=== PATIENT | male | born 1970 ===

== ENCOUNTER → 2017-05-10 | Outpatient (CLI) | payer OTHER ==
--- NOTE | 2017-05-10 08:55 | DIAGNOSTIC IMAGING REPORT ---
AP STANDING VIEW OF BOTH KNEES; 3 VIEWS LEFT KNEE CLINICAL HISTORY: Chronic left knee pain. FINDINGS: An AP standing view of both knees with crosstable lateral, tunnel, and sunrise views of the left knee are obtained. No prior studies are available for comparison at the time of dictation. The skeletal structures are osteopenic. There is advanced tricompartmental degenerative joint space narrowing in the left knee, greatest in the medial compartment where there is bony sclerosis and osteochondral irregularity. There are large marginal osteophytes and patellar enthesophytes. Chondrocalcinosis is noted in the medial and lateral compartments. Bony overgrowth is seen along the posterior aspect of the distal femoral condyles on the lateral view. There is a large joint effusion. Calcifications are noted within the distal aspect of the quadriceps tendon. Soft tissue swelling is present around the left knee. Survey images of the right knee on the frontal view show moderate to advanced narrowing in the medial compartment, marginal osteophytes, and chondrocalcinosis in the medial and lateral compartments. Soft tissue swelling is observed. IMPRESSION: 1. Large joint effusion and soft tissue swelling. No acute bony abnormality seen in the left knee. 2. Advanced osteoarthrosis and chondrocalcinosis of the left knee as above. 3. Survey images of the right knee on the frontal view also show moderate to advanced osteoarthrosis and chondrocalcinosis. Electronically signed by: Dvay Cagle M.D. 05/10/2017 8:54 AM Dictated Date/Time: 05/10/2017 8:49 AM
== END | disposition home or self-care (01) ==
LOC: C.RDSM 14:51
PROVIDERS: ATTEND Physician Assistant
DX: G89.29 Other chronic pain (principal); M25.562 Pain in left knee; M25.462 Effusion, left knee; M17.12 Unilateral primary osteoarthritis, left knee; M11.262 Other chondrocalcinosis, left knee

== ENCOUNTER 2025-04-15 13:24 | Inpatient (IN) ==
--- NOTE | 2025-04-15 14:06 | Emergency Department Note ---
Impression & Plan Fracture of distal end of left tibia, Ambulatory dysfunction ED Provider Note CHIEF COMPLAINT: Left ankle injury HISTORY OF PRESENTING ILLNESS: Patient is a 54-year-old male who presents to the emergency department today due to a left ankle injury. He was seen at [facility] last weekend and diagnosed with some type of fracture to the ankle. He denies remembering any injury but has had pain and discomfort that has progressively gotten worse over the past 2 weeks. He was given a walking boot at [facility] and followed up with [facility]. He has been difficulty getting around with the walking boot on and was seen by Dr. Mahmood who referred the patient to the emergency department for admission for ambulatory dysfunction. He reports having 6-7 steps to walk down to get into his home. The patient denies any sensation changes including any numbness or tingling to the left lower extremity. He currently is declining any pain. Patient denies chest pain, sob, breathing difficulties, abdominal pain, headache, fevers/chills, blood in stool or urine, any recent illness, or any recent travel. REVIEW OF SYSTEMS: See HPI for pertinent positives and pertinent negatives. ALLERGIES: See below MEDICATIONS: See below PAST MEDICAL HISTORY: See below PHYSICAL EXAM: VITALS: Vitals are noted on the nurse's note and reviewed by myself. GENERAL: Non toxic, in no acute distress, non-diaphoretic. SKIN: No bruising or deformity noted. No rashes. No erythema or warmth. Capillary refill <2 sec. EYES: PERRLA. EOMI. Conjunctivae without injection, sclerae without icterus. NECK: Supple without nuchal rigidity. HEART: Regular rate and rhythm without murmurs gallops or rubs. LUNGS: Clear to auscultation bilaterally without wheezes, rales or rhonchi. No retractions or accessory muscle use. ABDOMEN: Positive bowel sounds x 4. Normal tympanic percussion. Soft, nontender to palpation. No masses or hepatosplenomegaly. MUSCULOSKELETAL: Range of motion is intact but with increased pain to the left lower extremity. No gross musculoskeletal defects. NEURO: Sensation is intact. Patient was alert and oriented. No focal neurological deficits. DIFFERENTIAL DIAGNOSIS: Fracture, ligament injury, tendon injury, cellulitis, edema, septic joint, sprain, strain, hematoma, gout, among others. ED COURSE AND MEDICAL DECISION MAKING: HISTORY FROM INDEPENDENT HISTORIAN: History was provided by the patient. INTERPRETATION OF LABS: I interpreted the labs with full lab results as below in the lab section of this note. Laboratory results pertinent to the emergent complaint are discussed in the MDM section below. The patient was advised to follow up with their PCP and/or specialist(s) for further outpatient monitoring and management of any abnormal results. INTERPRETATION OF IMAGING: Imaging studies were interpreted by myself and read by radiology as per the imaging section of this note. The patient was advised to follow up with their PCP and/or specialist(s) for further outpatient management of any non-emergent abnormal findings. CHRONIC MEDICAL/SOCIAL CONDITIONS AFFECTING CARE: No social concerns were identified as barriers to patients care. ESCALATION OF CARE CONSIDERED: I considered admission on this patient due to ambulatory dysfunction with a fracture of distal tibia. CONSULTATIONS: I had a meaningful discussion about this patient with Dr. Mccracken who agrees with my assessment and the treatment plan. I also consulted with Dr. Garcia, hospitalist for admission. The patient was accepted. SUMMARY: I examined the patient for complaints of difficulty ambulating with a left ankle injury and walking boot. A physical exam and history were performed. Nursing notes, EMR, and medication list were personally reviewed. CBC showed no leukocytosis, anemia, thrombocytopenia. CMP showed BUN/creatinine ratio 20.2, glucose 103, alkaline phosphatase 141. X-ray of the left ankle and foot showed an acute mildly displaced oblique fracture at the distal tibia. The patient declined any pain medications here in the emergency department today. I did consult with Dr. Garcia who accepts the patient for admission. DIAGNOSIS: Left distal tibia fracture TREATMENT PLAN/DISCHARGE INSTRUCTIONS: Admit to hospitalist services. The chart was completed utilizing [employer] Speech voice recognition software.Grammatical errors, random word insertions, pronoun errors, and incomplete sentences are an occasional consequence of this system due to software limitations, ambient noise, and hardware issues.Any formal questions or concerns about the content, text, or information contained within the body of this dictation should be directly addressed to the physician for clarification. Past Med/Surg History Problem List (Updated 04/15/25 @ 15:35 by SAL Vasquez) Ambulatory dysfunction (Acute) Fracture of distal end of left tibia (Acute) HTN (hypertension) Closed left ankle fracture Social History Smoking Status: Never smoker Preferred Language: Uzbek Feels Safe at Home: Yes Allergies Allergies Allergy/AdvReac Type Severity Reaction Status Date / Time No Known Allergies Allergy Verified 04/15/25 14:59 Home Meds Home Medications Medication Instructions Recorded Confirmed ascorbic acid 1,000 1 ea PO DAILY 04/15/25 04/15/25 bt-ngrmhglewekz-okuxcnog powder effervescent pack (Emergen-C) aspirin 81 mg tablet,delayed 81 mg PO DAILY 04/15/25 04/15/25 release atorvastatin 80 mg tablet 80 mg PO DAILY 04/15/25 04/15/25 buspirone 10 mg tablet 10 mg PO TID 04/15/25 04/15/25 citalopram 10 mg tablet 10 mg PO DAILY 04/15/25 04/15/25 diclofenac sodium 75 mg 75 mg PO BID PRN Pain 04/15/25 04/15/25 tablet,delayed release lisinopril 20 mg tablet 20 mg PO DAILY 04/15/25 04/15/25 lisinopril 20 1 tab PO DAILY 04/15/25 04/15/25 mg-hydrochlorothiazide 25 mg tablet Results & Data (ED) Vital Signs Vital Signs - 24 hr 04/15/25 13:43 04/15/25 14:23 04/15/25 15:50 Temperature 36.8 C Temperature Source Temporal Artery Scan Pulse Rate 92 H Pulse Rate [Right Finger] 82 73 Pulse Rhythm [Right Finger] Regular Pulse Strength [Right Finger] Normal Respiratory Rate 20 20 20 Respiratory Effort / Characteristics Non-Labored Non-Labored Spontaneous Non-Labored Respiratory Depth Normal Normal Normal Respiratory Pattern Regular Blood Pressure 145/84 H Blood Pressure [Right Arm] 134/89 156/93 H Blood Pressure Mean 104 Blood Pressure Mean [Right Arm] 104 114 Blood Pressure Position [Right Arm] Sitting Pulse Oximetry 93 96 95 Oxygen Delivery Method Room Air Room Air Room Air Sepsis Recent Fever Within 48 Hours No Sepsis New/Unexplained Change in Mental Status No Sepsis Action Taken by Nursing No Action Required 04/15/25 15:59 Temperature Temperature Source Pulse Rate Pulse Rate [Right Finger] Pulse Rhythm [Right Finger] Pulse Strength [Right Finger] Respiratory Rate Respiratory Effort / Characteristics Respiratory Depth Respiratory Pattern Blood Pressure Blood Pressure [Right Arm] Blood Pressure Mean Blood Pressure Mean [Right Arm] Blood Pressure Position [Right Arm] Pulse Oximetry Oxygen Delivery Method Room Air Sepsis Recent Fever Within 48 Hours Sepsis New/Unexplained Change in Mental Status Sepsis Action Taken by Nursing Laboratory Data 04/15/25 14:20 04/15/25 14:20 Lab Results 04/15/25 Range/Units 14:20 WBC 7.25 (4.8-10.8) K/ul RBC 4.33 L (4.70-6.10) M/uL Hgb 14.8 (14.0-18.0) g/dl Hct 41.1 L (42.0-52.0) % MCV 94.9 (80.0-100.0) fL MCH 34.2 H (25.0-34.0) pg MCHC 36.0 (32.0-36.0) g/dL RDW Std Deviation 41.7 (36.4-46.3) fL RDW Coeff of Suzette 11.9 (11.5-14.5) % Plt Count 330 (130-400) K/uL MPV 9.5 (9.4-12.4) fL Immature Gran % (Auto) 0.1 % Neut % (Auto) 70.3 % Lymph % (Auto) 20.0 % [place] % (Auto) 7.9 % Eos % (Auto) 1.0 % Baso % (Auto) 0.7 % Neut # (Auto) 5.10 (1.40-6.50) K/uL Lymph # (Auto) 1.45 (1.20-3.40) K/uL [place] # (Auto) 0.57 (0.11-0.59) K/uL Eos # (Auto) 0.07 (0.00-0.50) K/uL Baso # (Auto) 0.05 (0.00-0.20) K/uL Immature Gran # (Auto) 0.01 (0.01-0.20) K/uL Sodium 139 (136-145) mmol/L Potassium 3.5 (3.5-5.1) mmol/L Chloride 105 (98-107) mmol/L Carbon Dioxide 25 (21-32) mmol/L Anion Gap 9 (3-11) BUN 23 (6-23) mg/dl Creatinine 1.14 (0.6-1.4) mg/dl Est Cr Clr Drug Dosing Not Reportable eGFR 75.48 BUN/Creatinine Ratio 20.2 H (10-20) Glucose 103 H (70-99(Fasting)) mg/dl Calcium 10.2 (8.6-10.3) mg/dl Total Bilirubin 0.6 (0.2-1.0) mg/dl AST 21 (13-39) U/L ALT 19 (7-52) U/L Alkaline Phosphatase 141 H (34-104) U/L Total Protein 7.9 (6.0-8.3) gm/dl Albumin 4.8 (3.4-5.0) gm/dl Globulin 3.1 (2.5-4.0) gm/dl Albumin/Globulin Ratio 1.5 (0.9-2) Imaging Data Radiologist's Impression: Foot X-Ray 04/15/25 13:53 XR ankle LT min 3V routine, XR foot LT min 3V routine CLINICAL HISTORY: injury, worsening pain COMPARISON: None FINDINGS: There is an acute mildly displaced oblique fracture at the distal fibula with lateral intra-articular extension. No other acute fracture or dislocation seen at the left ankle. There are chronic calcifications adjacent to the malleolar line, distal Achilles, and region of the plantar fascia consistent with sequela of old injury or calcific tendinitis. No acute fracture or dislocation seen at the left foot. IMPRESSION: Acute fracture at the distal tibia. ACT 112: Negative or not required by law. Electronically signed by: Melvin Carnes M.D. 04/15/2025 2:14 PM Ankle X-Ray 04/15/25 13:59 XR ankle LT min 3V routine, XR foot LT min 3V routine CLINICAL HISTORY: injury, worsening pain COMPARISON: None FINDINGS: There is an acute mildly displaced oblique fracture at the distal fibula with lateral intra-articular extension. No other acute fracture or dislocation seen at the left ankle. There are chronic calcifications adjacent to the malleolar line, distal Achilles, and region of the plantar fascia consistent with sequela of old injury or calcific tendinitis. No acute fracture or dislocation seen at the left foot. IMPRESSION: Acute fracture at the distal tibia. ACT 112: Negative or not required by law. Electronically signed by: Melvin Carnes M.D. 04/15/2025 2:14 PM Discharge Plan Visit Data Chief Complaint: Foot Injury/Pain Stated Complaint: LT FOOT CRACKED BONE DOC REFERRED ED Provider: Altaf Ibarra ED Midlevel Provider: Fara Perez Discharge Problem: Fracture of distal end of left tibia, Ambulatory dysfunction Patient Disposition: Admitted As Inpatient Condition: Good Discharge Instructions Interventions: ED Discharge Assessment Last Done: 04/15/25 15:59 Forms Stand Alone Forms: My [facility] [employer] Prescriptions Prescriptions: No Action atorvastatin 80 mg tablet 80 mg PO DAILY citalopram 10 mg tablet 10 mg PO DAILY lisinopril 20 mg tablet 20 mg PO DAILY aspirin 81 mg tablet,delayed release (DR/EC) 81 mg PO DAILY buspirone 10 mg tablet 10 mg PO TID lisinopril-hydrochlorothiazide 20-25 mg tablet 1 tab PO DAILY diclofenac sodium 75 mg tablet,delayed release (DR/EC) 75 mg PO BID PRN (Reason: Pain) Emergen-C 1,000 mg Powder Effervescent In Packet 1 ea PO DAILY Referrals Referrals: PCP,NO [Physician] - Discharge Problem: Fracture of distal end of left tibia Qualifiers: Encounter type: initial encounter Fracture type: closed Fracture morphology: u nspecified fracture morphology Qualified Code(s): S82.302A - Unspecified fracture of lower end of left tibia, initial encounter for closed fracture
--- NOTE | 2025-04-15 14:15 | XRay Report ---
XR ankle LT min 3V routine, XR foot LT min 3V routine CLINICAL HISTORY: injury, worsening pain COMPARISON: None FINDINGS: There is an acute mildly displaced oblique fracture at the distal fibula with lateral intr a-articular extension. No other acute fracture or dislocation seen at the left ankle. There are chron ic calcifications adjacent to the malleolar line, distal Achilles, and region of the plantar fascia c onsistent with sequela of old injury or calcific tendinitis. No acute fracture or dislocation seen at the left foot. IMPRESSION: Acute fracture at the distal tibia. ACT 112: Negative or not required by law. Electronically signed by: Melvin Carnes M.D. 04/15/2025 2:14 PM
[2025-04-15 14:32] LABS: Hematocrit (blood only) 41.1 % (42.0-52.0); Hemoglobin 14.8 g/dl (14.0-18.0); Immature Granulocytes # (auto) 0.01 K/uL (0.01-0.20); Immature Granulocytes % (auto) 0.1 %; Mean Corpuscular Hemoglobin 34.2 pg (25.0-34.0); Mean Corpuscular Volume 94.9 fL (80.0-100.0); Platelet Count 330 K/uL (130-400); RDW Standard Deviation 41.7 fL (36.4-46.3); Red Blood Count 4.33 M/uL (4.70-6.10); White Blood Count 7.25 K/ul (4.8-10.8)
[2025-04-15 14:58] LABS: Alanine Aminotransferase 19 U/L (7-52); Albumin Globulin Ratio 1.5 (0.9-2); Albumin Level 4.8 gm/dl (3.4-5.0); Alkaline Phosphatase 141 U/L (34-104); Anion Gap 9 (3-11); Bilirubin,Total 0.6 mg/dl (0.2-1.0); Blood Urea Nitrogen 23 mg/dl (6-23); Calcium 10.2 mg/dl (8.6-10.3); Carbon Dioxide 25 mmol/L (21-32); Chloride 105 mmol/L (98-107); Globulin 3.1 gm/dl (2.5-4.0); Glucose 103 mg/dl (70-99(Fasting)); Potassium 3.5 mmol/L (3.5-5.1); Sodium 139 mmol/L (136-145); Total Protein 7.9 gm/dl (6.0-8.3)
--- NOTE | 2025-04-15 15:23 | History & Physical Report ---
Date of Service April 15, 2025 Assessment & Plan (1) Closed left ankle fracture: (2) HTN (hypertension): Plan Is a 54-year-old male with a history of anxiety, hypertension who presents to the hospital today for management of his acute distal left tibia fracture 1. Acute distal left tibia fracture: According to the patient he started experiencing some pains a couple of weeks ago. Denies any fall and does not recall spraining his ankle. Diagnosed with ankle fracture, lower extremity boot did not control his symptoms. The plan is to admit him for possible surgical management Consult orthopedics N.p.o. after midnight Pain control 2. Hypertension: Takes lisinopril and hydrochlorothiazide Continue blood pressure under good control Full code History of Present Illness Chief Complaint: Ankle pain Primary Care Provider: Sharmila Mora PA-C This a 54-year-old male with a history of anxiety, hypertension, who presents to the hospital on account of left foot pain. According to the patient he noticed that he started having some ankle pain sometime last week which had progressively gotten worse. He initially went to [facility] last week and and they diagnosed him with fracture of the ankle and gave him a boot to wear. However he has some difficulty getting around with the boot and now went to see Dr. Mahmood who said that he is going to need surgery and then subsequent to rehab. Here in the emergency department, vital signs are stable blood pressure 134/89, pulse 82 respiratory rate 20 temperature 98.2. Foot and ankle x-ray today showed evidence of acute fracture of the distal tibia. He will be admitted to the hospital for further management Allergies Allergy/AdvReac Type Severity Reaction Status Date / Time No Known Allergies Allergy Verified 04/15/25 14:59 Home Medications Medication Instructions Recorded Confirmed Type ascorbic acid 1,000 1 ea PO DAILY 04/15/25 04/15/25 History de-ybxzwpxhzhbt-wwwernti powder effervescent pack (Emergen-C) aspirin 81 mg tablet,delayed 81 mg PO DAILY 04/15/25 04/15/25 History release atorvastatin 80 mg tablet 80 mg PO DAILY 04/15/25 04/15/25 History buspirone 10 mg tablet 10 mg PO TID 04/15/25 04/15/25 History citalopram 10 mg tablet 10 mg PO DAILY 04/15/25 04/15/25 History diclofenac sodium 75 mg 75 mg PO BID PRN Pain 04/15/25 04/15/25 History tablet,delayed release lisinopril 20 mg tablet 20 mg PO DAILY 04/15/25 04/15/25 History lisinopril 20 1 tab PO DAILY 04/15/25 04/15/25 History mg-hydrochlorothiazide 25 mg tablet Past Med/Surg History Problem List (Updated 04/15/25 @ 15:21 by Angel Garcia MD) HTN (hypertension) Closed left ankle fracture Social History Smoking Status: Never smoker Preferred Language: Burkinan Feels Safe at Home: Yes Review of Systems Review of Systems: All systems reviewed are negative, apart from the ones contained in the history. Physical Exam Physical Exam: The patient is awake, alert and oriented 3, well developed and well nourished, normocephalic and atraumatic, lying in bed and in no acute distress. HEENT--PERRL, EOMI, mucous membranes and oropharynx mildly dry Neck--supple. No JVD. No bruits. Thyroid normal, trachea midline, no adenopathy. Heart--normal S1 and S2. No murmurs, rubs or gallops. Lungs--clear bilaterally, no respiratory distress, no accessory muscle use. Abdomen--normal bowel sounds and soft. Extremities--no cyanosis or clubbing. Left lower extremity in boot Dermatologic--normal skin turgor, normal color, no abnormal lymph nodes, no rash. Neurologic--cranial nerves II through XII grossly intact. Rheumatologic--normal range of motion. Psychiatric--normal affect. Results & Data Results & Data Vital Signs (Past 12 Hours) Vital Signs Temp Pulse Pulse Resp BP BP Pulse Ox 04/15/25 14:23 82 20 134/89 96 04/15/25 13:43 98.2 F 92 H 20 145/84 H 93 O2 Del Method 04/15/25 14:23 Room Air 04/15/25 13:43 Room Air PG Care Time/CCT Total # of Minutes Spent Total Time Spent with Patient: Total time spent is greater than 50% in coordination of care (as documented) at patient's floor/unit and/or counseling patient: Coding Level of Care Code 20486 INT INP/OBS CARE 2/55MIN Diagnoses Closed left ankle fracture S82.892A HTN (hypertension) I10 Time Spent (min) 55
--- NOTE | 2025-04-15 15:35 | Emergency Department Note ---
ED Visit Note I was consulted by the Advanced Practice Provider, Fara HUANG. I performed a substantive portion of the visit. This includes aspects of: History: This is a 54-year-old male with a past medical history significant for hypertension, hyperlipidemia and depression/anxiety presenting to the [facility] emergency department further evaluation of ambulatory dysfunction secondary to a distal tibial fracture. Orthopedic surgery made a recommendation for admission with surgery planned. MDM: I reviewed documentation. I reviewed plain films as well as labs. Labs are normal. X-rays show a distal tibial fracture. Orthopedic surgery will plan to see the patient with operative timing pending. Patient was discussed with the hospitalist team for admission 2/2 ambulatory status as well as pain control. Altaf Ibarra DO Emergency Medicine .
[2025-04-15] MEDS ORDERED: ONDANSETRON INJ 2 MG/ML 2 ML VIAL IV PRN (16:30)
--- NOTE | 2025-04-15 17:03 | Orthopedic Consultation ---
Date of Consultation April 15, 2025 Assessment & Plan (1) Fracture of distal end of left tibia: (2) HTN (hypertension): (3) Ambulatory dysfunction: Plan This is a 54-year-old gentleman who presented to the outpatient office today with a quite complex history for evaluation of his left ankle. The patient had an atraumatic onset of pain in his left ankle. This prompted an evaluation at [facility]. At that time he was diagnosed with a nondisplaced distal tibia fracture. He was instructed to be nonweightbearing until follow-up. He presented today for first follow-up and he walked into clinic on his splint. Patient notes that he was unable to comply with nonweightbearing while at home. On radiographic evaluation of the patient's ankle today, he has completed his fracture proximally and he has had interval displacement of the fracture dist ally. Additionally, the patient's large total knee stemmed tibial component was evaluated on the tib/fib films and does appear loose. I had a very long and gracie discussion with the patient and his friend who joined him today with regards to the injury that he sustained. I am quite concerned about the potential for this being a pathologic fracture as the patient did not have acute trauma that caused this fracture. He denies any personal history of cancer and denies any constitutional symptoms. On evaluation of the patient's radiographs, I do not appreciate any aggressive bony lesion, however given the history I am still quite concerned about this. In order to fully evaluate and rule out pathologic fracture, we will order an MRI with and without contrast of the tibia. Upon initially discussing this with the patient, I instructed him on the importance of remaining nonweightbearing so as to prevent future displacement of this fracture and he states that he cannot do this. Because of this, we sent him to the hospital for direct admission for the rest of his workup and then to discuss surgical management thereafter. I think that there are essentially 3 management strategies for this type of fracture. Option 1 would be for open reduction internal fixation of this pilon injury via standard plate and screw construct distally. Option 2 would be for a more minimally invasive intramedullary fixation and option 3 would be for a TTC arthrodesis. The patient has already demonstrated the inability to comply with nonweightbearing while he is at home, which necessitated his presentation to the hospital today, but this does also need to be factored in as it relates to surgical decision making. If the patient is unable to comply with nonweightbearing, the safest option for him would be an intramedullary fixation. Given the patient's large stemmed total knee arthroplasty, an antegrade tibial nail would not be possible thereby eliminating option 2. The only other possible intramedullary fixation strategy would be for an acute TTC arthrodesis. Given the patient's relatively nonarthritic subtalar joint, and the fact that this would severely limit the patient and his mobility after surgery, this is probably not the best option. The best option at preserving the patient's functionality would likely be with a standard open reduction internal fixation of his distal tibia fracture. This would likely include an anterolateral and a direct medial plate in order to appropriately immobilize the fracture and also provide as much stability to the fracture to encourage healing. Additionally, this preserves his tibiotalar and subtalar joints for future bailout fusion if necessary. His presentation and prior orthopaedic history also requires significant consideration with regards to surgical planning. Due to the stemmed tibial prosthesis, I do not think it is possible to overlap the constructs from his knee and ankle, so following ORIF of his distal tibia, the patient will likely have a mid diaphyseal stress riser. We would attempt to keep the distal tibial implants as far away as possible from the distal aspect of the tibial prosthesis to decrease the stress riser is much as possible, however the patient is certainly at risk of future mid diaphyseal tibial fracture. I had a very long and gracie discussion with the patient regarding the severity of his injury as well as his perioperative risks. We discussed in great detail the risks of any surgery for this patient. risks of the proposed surgery include but are not limited to loss of life/limb, DVT, incomplete relief of pain, need for additional surgery, iatrogenic injury to bone/nerve/tendon/vessel, nonunion, malunion, hardware complication, hardware failure, hardware irritation, wound healing complications, infection. Additionally, given the patient's history of postoperative infection and about his total knee requiring revision, I believe the patient's risk of infection and potentially requiring amputation in the future is significant. I expressed this to him in no uncertain terms. Additionally, I believe this patient's risk of wound healing complications is quite high. Finally, I believe the patient's risk of mid diaphyseal tibial fracture in the future is quite high as well. At this time, until the patient's leg has not been worked up entirely, so we will not indicate him for surgery. I did discuss with him that if there is any aggressive osseous lesion or finding concerning for cancer within the distal tibia, this would likely require transfer to a tertiary care facility with a musculoskeletal oncologist. The patient expressed understanding. Should the workup return no concerning findings for cancer, we will find an appropriate surgical timing. Additionally, given the patient's inability to comply with weightbearing restrictions, I suspect that postoperatively he will require placement in a nursing facility. He expressed understanding to all the above. History of Present Illness Reason for Consultation: left ankle Attending Physician: Angel Garcia MD History of Present Illness 54-year-old gentleman presented to the outpatient office today for evaluation of his left ankle. The patient initially presented to [facility] for evaluation of left ankle pain that was relatively acute in onset. The patient did not have any injury that he could recall. On evaluation today, the patient notes that he continues to have any difficulty remembering any injury that may have caused his ankle trauma. When he presented to the outside hospital, I was contacted and recommended CT scan for evaluation of the fracture of his distal tibia. I recommended the patient be placed into a splint and remain nonweightbearing. The patient notes that he was told this by the outside facility, however he was unable to comply with nonweightbearing. He walked into the clinic today on his splint complaining of continued pain in and about his ankle. As far as past medical history goes, the patient denies any significant past medical history. He states that he was told at some point recently that he does not have diabetes. He denies any antecedent pain in the ankle. He denies any suspicious lumps or bumps around his body. He denies any fevers, chills, night sweats, constitutional signs. He has pain about his left ankle. 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 He did have an antibiotic spacer with IV antibiotics for an extended period of time also. Allergies Allergy/AdvReac Type Severity Reaction Status Date / Time No Known Allergies Allergy Verified 04/15/25 14:59 Home Medications Medication Instructions Recorded Confirmed Type ascorbic acid 1,000 1 ea PO DAILY 04/15/25 04/15/25 History on-tvxnltmpeczb-cwvgudnp powder effervescent pack ([facility]) aspirin 81 mg tablet,delayed 81 mg PO DAILY 04/15/25 04/15/25 History release atorvastatin 80 mg tablet 80 mg PO DAILY 04/15/25 04/15/25 History buspirone 10 mg tablet 10 mg PO TID 04/15/25 04/15/25 History citalopram 10 mg tablet 10 mg PO DAILY 04/15/25 04/15/25 History diclofenac sodium 75 mg 75 mg PO BID PRN Pain 04/15/25 04/15/25 History tablet,delayed release lisinopril 20 mg tablet 20 mg PO DAILY 04/15/25 04/15/25 History lisinopril 20 1 tab PO DAILY 04/15/25 04/15/25 History mg-hydrochlorothiazide 25 mg tablet Patient History Social History Smoking Status: Never smoker Preferred Language: Chilean Feels Safe at Home: Yes Review of Systems Review of Systems: All systems reviewed & are unremarkable except as noted in HPI & below Physical Exam Physical Exam: On physical examination today, no open wounds are noted about his left ankle. He is tender to palpation about the left ankle. He has a positive wrinkle sign without significant swelling. His prior surgical incision of his knee is well- healed. Results & Data Vital Signs (Past 12 Hours) Vital Signs Temp Pulse Pulse Resp BP BP Pulse Ox 04/15/25 15:59 04/15/25 15:50 73 20 156/93 H 95 04/15/25 14:23 82 20 134/89 96 04/15/25 13:43 36.8 C 92 H 20 145/84 H 93 O2 Del Method 04/15/25 15:59 Room Air 04/15/25 15:50 Room Air 04/15/25 14:23 Room Air 04/15/25 13:43 Room Air Diagnostic Findings X-rays of the foot and ankle obtained today were personally reviewed and interpreted. These demonstrate a distal tibial plafond fracture with metadiaphyseal extension and completion across the anterior aspect of the distal tibia. There is a intramedullary density within the distal tibia as well. (1) Fracture of distal end of left tibia Encounter type: initial encounter Fracture morphology: unspecified fracture morphology Fracture type: closed Qualified Code(s): S82.302A - Unspecified fracture of lower end of left tibia, initial encounter for closed fracture
[2025-04-15] MEDS: GADOBUTROL 65ML VIAL IV ONE (20:31)
[2025-04-15] MEDS: ACETAMINOPHEN 325 MG TAB PO PRN (20:49)
[2025-04-15] MEDS: busPIRone 5 MG TAB PO SCH (20:49)
--- NOTE | 2025-04-15 23:21 | Magnetic Resonance Report ---
Exam(s): MRI EXTREMITY W/WO Contrast IV Amt: 11.5 ml gadavist EXAM: MR Left Lower Extremity Without and With Intravenous Contrast, Tibia and Fibula CLINICAL HISTORY: Reason for exam: r/o sarcoma. TECHNIQUE: Multiplanar magnetic resonance images of the left tibia and fibula without and with intravenous contrast. CONTRAST: Patient received 11.5 ml Gadavist of IV contrast COMPARISON: X-rays dated 04/15/2025. FINDINGS: Metallic artifact degrades image quality significantly limiting the exam. Bones/joints: The patient appears to be status post total knee replacement. There is a nondisplaced fracture noted of the distal tibial shaft. There is bone marrow edema.. The fracture extends to the articular surface. No dislocation. Soft tissues: There is soft tissue edema and swelling. No discrete fluid collection is noted. No mass is seen. No abnormal contrast enhancement is noted. IMPRESSION: Limited exam. There is soft tissue edema and swelling. There is a nondisplaced fracture noted of the distal tibial shaft.. Electronically signed by: Bo Arshad MD 04/15/25 23:20 PM
[2025-04-16 07:46] LABS: Hematocrit (blood only) 39.9 % (42.0-52.0); Hemoglobin 14.4 g/dl (14.0-18.0); Mean Corpuscular Hemoglobin 34.6 pg (25.0-34.0); Mean Corpuscular Volume 95.9 fL (80.0-100.0); Platelet Count 309 K/uL (130-400); RDW Standard Deviation 42.0 fL (36.4-46.3); Red Blood Count 4.16 M/uL (4.70-6.10); White Blood Count 5.39 K/ul (4.8-10.8)
[2025-04-16] MEDS: LISINOPRIL/HCTZ 20/25MG 1 TAB PO SCH (08:04)
[2025-04-16] MEDS: ATORVASTATIN 40 MG TAB PO SCH (08:05)
[2025-04-16] MEDS: ASPIRIN 81 MG ECTAB PO SCH (08:05)
[2025-04-16 08:12] LABS: Anion Gap 9.0 (3-11); Blood Urea Nitrogen 21.0 mg/dl (6-23); Calcium 9.8 mg/dl (8.6-10.3); Carbon Dioxide 28.0 mmol/L (21-32); Chloride 101.0 mmol/L (98-107); Creatinine Clr Calc Pharmacy 93.9 ml/min; Glucose 121.0 mg/dl (70-99(Fasting)); Potassium 3.6 mmol/L (3.5-5.1); Sodium 138.0 mmol/L (136-145)
[2025-04-16] MEDS: CITALOPRAM 20 MG TAB PO SCH (09:06)
--- NOTE | 2025-04-16 10:29 | Hospitalist Progress Note ---
Date of Service April 16, 2025 Assessment & Plan (1) Closed left ankle fracture: (2) HTN (hypertension): Plan Is a 54-year-old male with a history of anxiety, hypertension who presents to the hospital today for management of his acute distal left tibia fracture 1. Acute distal left tibia fracture: According to the patient he started experiencing some pains a couple of weeks ago. Denies any fall and does not recall spraining his ankle. Diagnosed with a nondisplaced distal tibia fracture. Per ortho,He was instructed to be nonweightbearing until follow-up. However,Patient notes that he was unable to comply with nonweightbearing while at home. MRI has been done to r/o any osseous abnormality like cancer, MRI shows only non displaced fracture Ortho is on board, await final recs regarding surgery Pain control 2. Hypertension: Takes lisinopril and hydrochlorothiazide Continue blood pressure under good control Full code Admission and Anticipated Discharge Date Admission Date: April 15, 2025 Subjective patient seen and examined, no new complaints Review of Systems Review of Systems: All systems reviewed are negative, apart from the ones contained in the history. Physical Exam Physical Exam: The patient is awake, alert and oriented 3, well developed and well nourished, normocephalic and atraumatic, lying in bed and in no acute distress. HEENT--PERRL, EOMI, mucous membranes and oropharynx mildly dry Neck--supple. No JVD. No bruits. Thyroid normal, trachea midline, no adenopathy. Heart--normal S1 and S2. No murmurs, rubs or gallops. Lungs--clear bilaterally, no respiratory distress, no accessory muscle use. Abdomen--normal bowel sounds and soft. Extremities--no cyanosis or clubbing. Left lower extremity in boot Dermatologic--normal skin turgor, normal color, no abnormal lymph nodes, no rash. Neurologic--cranial nerves II through XII grossly intact. Rheumatologic--normal range of motion. Psychiatric--normal affect. Results & Data Results & Data Vital Signs (Past 12 Hours) Vital Signs Temp Pulse Resp BP Pulse Ox O2 Del Method 04/16/25 07:15 98.2 F 60 16 135/89 94 Room Air 04/15/25 23:10 98.1 F 69 18 125/75 95 Room Air PG Care Time/CCT Total # of Minutes Spent Total Time Spent with Patient: Total time spent is greater than 50% in coordination of care (as documented) at patient's floor/unit and/or counseling patient: Coding Level of Care Code 94124 SUB INP/OBS CARE MIN Diagnoses Closed left ankle fracture S82.892A HTN (hypertension) I10 Time Spent (min) 35
--- NOTE | 2025-04-16 13:46 | Orthopedic Progress Note ---
Date of Service April 16, 2025 Assessment & Plan (1) Fracture of distal end of left tibia: (2) HTN (hypertension): (3) Ambulatory dysfunction: Plan This is a 54-year-old gentleman who presented to the outpatient office yesterday with a quite complex history for evaluation of his left ankle. The patient had an atraumatic onset of pain in his left ankle. This prompted an evaluation at [facility]. At that time he was diagnosed with a nondisplaced distal tibia fracture. He was instructed to be nonweightbearing until follow-up. He presented today for first follow-up and he walked into clinic on his splint. Patient notes that he was unable to comply with nonweightbearing while at home. On radiographic evaluation of the patient's ankle, he has completed his fracture proximally and he has had interval displacement of the fracture distally. Additionally, the patient's large total knee stemmed tibial component was evaluated on the tib/fib films and does appear loose. I had a very long and gracie discussion with the patient and his friend who joined him in clinic with regards to the injury that he sustained. I am quite concerned about the potential for this being a pathologic fracture as the patient did not have acute trauma that caused this fracture. He denies any personal history of cancer and denies any constitutional symptoms. On evaluation of the patient's radiographs, I do not appreciate any aggressive bony lesion, however given the history I am still quite concerned about this. In order to fully evaluate and rule out pathologic fracture, we did obtain an MRI of his tibia/fib with and without contrast. I personally discussed the results of this with the radiologist. No aggressive bony lesions were appreciated and no suspicious signs of sarcoma were noted. Radiology suspects that this represents an insufficiency type fracture. I do believe that this fracture needs to be treated surgically in order to improve the chances of fracture healing and decrease risk of future displacement. I think that there are essentially 3 management strategies for this type of fracture. Option 1 would be for open reduction internal fixation of this pilon injury via standard plate and screw construct distally. Option 2 would be for a more minimally invasive intramedullary fixation and option 3 would be for a TTC arthrodesis. The patient has already demonstrated the inability to comply with nonweightbearing while he is at home, which necessitated his presentation to the hospital, but this does also need to be factored in as it relates to surgical decision making. If the patient is unable to comply with nonweightbearing, the safest option for him would be an intramedullary fixation. Given the patient's large stemmed total knee arthroplasty, an antegrade tibial nail would not be possible thereby eliminating option 2. The only other possible intramedullary fixation strategy would be for an acute TTC arthrodesis. Given the patient's relatively nonarthritic subtalar and tibio talar joints, and the fact that this would severely limit the patient and his mobility after surgery, this is probably not the best option. The best option at preserving the patient's functionality would likely be with a standard open reduction internal fixation of his distal tibia fracture. This would likely include an anterolateral and a direct medial plate in order to immobilize the fracture and also provide as much stability as possible to the fracture to encourage healing. Additionally, this preserves his tibiotalar and subtalar joints for future bailout fusion if necessary. His presentation and prior orthopaedic history also requires significant consideration with regards to surgical planning. Due to the stemmed tibial prosthesis, I do not think it is possible to overlap the constructs from his knee and ankle, so following ORIF of his distal tibia, the patient will likely have a mid diaphyseal stress riser. We would attempt to keep the distal tibial implants as far away as possible from the distal aspect of the tibial prosthesis to decrease the stress riser is much as possible, however the patient is certainly at risk of future mid diaphyseal tibial fracture. I explained this to him in plain terms. I had a very long and gracie discussion with the patient regarding the severity of his injury as well as his perioperative risks. We discussed in great detail the risks of any surgery for this patient. risks of the proposed surgery include but are not limited to loss of life/limb, DVT, incomplete relief of pain, need for additional surgery, iatrogenic injury to bone/nerve/tendon/vessel, nonunion, malunion, hardware complication, hardware failure, hardware irritation, wound healing complications, infection. Additionally, given the patient's history of postoperative infection and about his total knee requiring revision, I believe the patient's risk of infection and potentially requiring amputation in the future is significant. I expressed this to him in no uncertain terms. Additionally, I believe this patient's risk of wound healing complications is quite high. Finally, I believe the patient's risk of mid diaphyseal tibial fracture in the future is quite high as well. At this time, considering the radiology and I both reviewed the MRI and are not concerned about pathologic fracture, we will now indicate the patient for surgery. We have placed this patient on the surgical schedule for tomorrow. He should be n.p.o. after midnight. He will start DVT prophylaxis postoperatively. Additionally, given the patient's inability to comply with weightbearing restrictions, I suspect that postoperatively he will require placement in a nursing facility. He expressed understanding to all the above. Surgical plan: Open reduction internal fixation left distal tibia pilon fracture Admission and Anticipated Discharge Date Admission Date: April 15, 2025 Subjective patient seen and examined, no new complaints Review of Systems Review of Systems: All systems reviewed & are unremarkable except as noted in HPI & below Physical Exam Physical Exam: On physical examination today, no open wounds are noted about his left ankle. He is tender to palpation about the left ankle. He has a positive wrinkle sign without significant swelling. His prior surgical incision of his knee is well-h ealed. Results & Data Vital Signs (Past 12 Hours) Vital Signs Temp Pulse Resp BP Pulse Ox O2 Del Method 04/16/25 07:15 36.8 C 60 16 135/89 94 Room Air Diagnostic Findings MRI left tib-fib with and without contrast personally interpreted and reviewed. I did also call and discussed this with the radiologist. No aggressive appearing intraosseous or extraosseous lesions of the tibia. Stemmed total knee arthroplasty is noted and cement mantle is noted. (1) Fracture of distal end of left tibia Encounter type: initial encounter Fracture morphology: unspecified fracture morphology Fracture type: closed Qualified Code(s): S82.302A - Unspecified fracture of lower end of left tibia, initial encounter for closed fracture
[2025-04-17 07:35] LABS: Hematocrit (blood only) 41.8 % (42.0-52.0); Hemoglobin 14.4 g/dl (14.0-18.0); Mean Corpuscular Hemoglobin 32.9 pg (25.0-34.0); Mean Corpuscular Volume 95.4 fL (80.0-100.0); Platelet Count 304 K/uL (130-400); RDW Standard Deviation 42.5 fL (36.4-46.3); Red Blood Count 4.38 M/uL (4.70-6.10); White Blood Count 5.35 K/ul (4.8-10.8)
[2025-04-17 07:55] LABS: Anion Gap 9.0 (3-11); Blood Urea Nitrogen 18.0 mg/dl (6-23); Calcium 10.0 mg/dl (8.6-10.3); Carbon Dioxide 29.0 mmol/L (21-32); Chloride 99.0 mmol/L (98-107); Creatinine Clr Calc Pharmacy 95.6 ml/min; Glucose 125.0 mg/dl (70-99(Fasting)); Potassium 3.5 mmol/L (3.5-5.1); Sodium 137.0 mmol/L (136-145)
[2025-04-17] MEDS ORDERED: DEXAMETHASONE SOD INJ 4 MG/ML VIAL ONE (08:18)
[2025-04-17] MEDS ORDERED: ONDANSETRON INJ 2 MG/ML 2 ML VIAL ONE (08:18)
[2025-04-17] MEDS ORDERED: GLYCOPYRROLATE 0.2 MG/ML VIAL ONE (08:18)
[2025-04-17] MEDS ORDERED: PROPOFOL IV EMULSION 10 MG/ML 20 ML VIAL IV ONE (08:18)
[2025-04-17] MEDS ORDERED: ROCURONIUM BROMIDE 10 MG/ML 5 ML VIAL IV ONE (08:18)
[2025-04-17] MEDS ORDERED: LIDOCAINE 2% 2 ML VIAL/AMP(20MG/ML) INFIL ONE (08:18)
[2025-04-17] MEDS ORDERED: MIDAZOLAM HCL 1 MG/ML 2ML VIAL ONE ×2 (08:18→09:55)
[2025-04-17] MEDS ORDERED: SUGAMMADEX SODIUM 200 MG/2 ML VIAL IV ONE (08:26)
--- NOTE | 2025-04-17 08:56 | History & Physical Bridge Note ---
Date of Service April 17, 2025 History & Physical Bridge Note I have examined the patient, reviewed the History & Physical and in the interval since the performance of the History & Physical I have noted the following changes of clinical significance: This is a 54-year-old gentleman who presented to the outpatient office yesterday with a quite complex history for evaluation of his left ankle. The patient had an atraumatic onset of pain in his left ankle. This prompted an evaluation at [facility]. At that time he was diagnosed with a nondisplaced distal tibia fracture. He was instructed to be nonweightbearing until follow-up. He presented today for first follow-up and he walked into clinic on his splint. Patient notes that he was unable to comply with nonweightbearing while at home. On radiographic evaluation of the patient's ankle, he has completed his fracture proximally and he has had interval displacement of the fracture distally. Additionally, the patient's large total knee stemmed tibial component was evaluated on the tib/fib films and does appear loose. I had a very long and gracie discussion with the patient and his friend who joined him in clinic with regards to the injury that he sustained. I am quite concerned about the potential for this being a pathologic fracture as the patient did not have acute trauma that caused this fracture. He denies any personal history of cancer and denies any constitutional symptoms. On evaluation of the patient's radiographs, I do not appreciate any aggressive bony lesion, however given the history I am still quite concerned about this. In order to fully evaluate and rule out pathologic fracture, we did obtain an MRI of his tibia/fib with and without contrast. I personally discussed the results of this with the radiologist. No aggressive bony lesions were appreciated and no suspicious signs of sarcoma were noted. Radiology suspects that this represents an insufficiency type fracture. I do believe that this fracture needs to be treated surgically in order to improve the chances of fracture heali ng and decrease risk of future displacement. I think that there are essentially 3 management strategies for this type of fracture. Option 1 would be for open reduction internal fixation of this pilon injury via standard plate and screw construct distally. Option 2 would be for a more minimally invasive intramedullary fixation and option 3 would be for a TTC arthrodesis. The patient has already demonstrated the inability to comply with nonweightbearing while he is at home, which necessitated his presentation to the hospital, but this does also need to be factored in as it relates to surgical decision making. If the patient is unable to comply with nonweightbearing, the safest option for him would be an intramedullary fixation. Given the patient's large stemmed total knee arthroplasty, an antegrade tibial nail would not be possible thereby eliminating option 2. The only other possible intramedullary fixation strategy would be for an acute TTC arthrodesis. Given the patient's relatively nonarthritic subtalar and tibio talar joints, and the fact that this would severely limit the patient and his mobility after surgery, this is probably not the best option. The best option at preserving the patient's functionality would likely be with a standard open reduction internal fixation of his distal tibia fracture. This would likely include an anterolateral and a direct medial plate in order to immobilize the fracture and also provide as much stability as possible to the fracture to encourage healing. Additionally, this preserves his tibiotalar and subtalar joints for future bailout fusion if necessary. His presentation and prior orthopaedic history also requires significant consideration with regards to surgical planning. Due to the stemmed tibial prosthesis, I do not think it is possible to overlap the constructs from his knee and ankle, so following ORIF of his distal tibia, the patient will likely have a mid diaphyseal stress riser. We would attempt to keep the distal tibial implants as far away as possible from the distal aspect of the tibial prosthesis to decrease the stress riser is much as possible, however the patient is certainly at risk of future mid diaphyseal tibial fracture. I explained this to him in plain terms. I had a very long and gracie discussion with the patient regarding the severity of his injury as well as his perioperative risks. We discussed in great detail the risks of any surgery for this patient. risks of the proposed surgery include but are not limited to loss of life/limb, DVT, incomplete relief of pain, need for additional surgery, iatrogenic injury to bone/nerve/tendon/vessel, nonunion, malunion, hardware complication, hardware failure, hardware irritation, wound healing complications, infection. Additionally, given the patient's history of postoperative infection and about his total knee requiring revision, I believe the patient's risk of infection and potentially requiring amputation in the future is significant. I expressed this to him in no uncertain terms. Additionally, I believe this patient's risk of wound healing complications is quite high. Finally, I believe the patient's risk of mid diaphyseal tibial fracture in the future is quite high as well. At this time, considering the radiology and I both reviewed the MRI and are not concerned about pathologic fracture, we will now indicate the patient for surgery. We have placed this patient on the surgical schedule for tomorrow. He should be n.p.o. after midnight. He will start DVT prophylaxis postoperatively. Additionally, given the patient's inability to comply with weightbearing restrictions, I suspect that postoperatively he will require placement in a nursing facility. He expressed understanding to all the above. Surgical plan: Open reduction internal fixation left distal tibia pilon fracture
--- NOTE | 2025-04-17 09:44 | Anesthesiology Consultation ---
Date of Service April 17, 2025 Assessment & Plan Chart Review Chart Review: Acceptable Risk for Surgery and Patient NOT seen in Pre Admission Testing Consults Requested none ASA ASA2 Proposed Anesthesia Anesthesia Type: General Regional Regional Laterality: Left Site: Popliteal and Adductor Canal Risk / Benefits Reviewed With: PT / POA / Parent / Guardian, Accepts Plan and Informed Consent Obtained History Surgery Operation Date: 04/17/25 09:10 Proposed Procedures p Left Distal Tibia Open Reduction Internal Fixation - Marcell Mahmood DO Height/Weight Height: 6 ft Weight: 115 kg Allergies Allergy/AdvReac Type Severity Reaction Status Date / Time No Known Allergies Allergy Verified 04/15/25 14:59 Medications Home Medications Medication Instructions Recorded Confirmed Last Taken ascorbic acid 1,000 1 ea PO DAILY 04/15/25 04/15/25 04/15/25 ds-[id number]-[id number] powder effervescent pack (Emer[facility]) aspirin 81 mg tablet,delayed 81 mg PO DAILY 04/15/25 04/15/25 04/15/25 release atorvastatin 80 mg tablet 80 mg PO DAILY 04/15/25 04/15/25 04/15/25 buspirone 10 mg tablet 10 mg PO TID 04/15/25 04/15/25 04/15/25 08:00 citalopram 10 mg tablet 10 mg PO DAILY 04/15/25 04/15/25 04/15/25 diclofenac sodium 75 mg 75 mg PO BID PRN Pain 04/15/25 04/15/25 Unknown tablet,delayed release lisinopril 20 mg tablet 20 mg PO DAILY 04/15/25 04/15/25 04/15/25 lisinopril 20 1 tab PO DAILY 04/15/25 04/15/25 04/15/25 mg-hydrochlorothiazide 25 mg tablet Active Medications Generic Name Dose Route Start Last Admin Trade Name Freq PRN Reason Stop Dose Admin Acetaminophen 650 mg 04/15/25 16:30 04/16/25 18:48 Acetaminophen 325 Mg Tab PO 05/15/25 16:29 650 mg Q4H PRN Administration pain/fever Aspirin 81 mg 04/16/25 09:00 04/16/25 08:05 Aspirin 81 Mg Ectab PO 05/16/25 08:59 81 mg DAILY MONISHA Administration Atorvastatin Calcium 80 mg 04/16/25 09:00 04/16/25 08:05 Atorvastatin 40 Mg Tab PO 05/16/25 08:59 80 mg DAILY MONISHA Administration Buspirone HCl 10 mg 04/15/25 21:00 04/17/25 09:30 Buspirone 5 Mg Tab PO 05/15/25 20:59 Not Given TID MONISHA Citalopram Hydrobromide 10 mg 04/16/25 09:00 04/16/25 09:06 Citalopram 20 Mg Tab PO 05/16/25 08:59 10 mg DAILY MONISHA Administration Lisinopril/HCTZ 1 tab 04/16/25 09:00 04/16/25 08:04 Lisinopril/Hctz 20/25mg 1 Tab PO 05/16/25 08:59 1 tab DAILY MONISHA Administration NPO Date Last Intake of Fluids: 04/16/25 Time Last Intake of Fluids: 21:00 Date Last Intake of Solids: 04/16/25 Time Last Intake of Solids: 19:00 Past Medical History obese HTN NLD Anxiety Depression Exercise / Class Metabolic Activity II 4-5 Yardwork/Stairs/Walk up hill Past Anesthesia History No Hx of Anesthesia Complications and No Family Hx of Anesthesia Complications History of PONV No Hx of PONV and No Hx of Motion Sickness Social History Smoking Status: Never smoker Do You Dip or Chew Tobacco: No Hx Alcohol Use: No Hx Substance Use: No substance use type: does not use Physical Exam Vital Signs Last Vital Signs Temp 37.0 C 04/17/25 08:51 Pulse 73 04/17/25 08:51 Resp 20 04/17/25 08:51 BP 132/88 04/17/25 09:14 Pulse Ox 95 04/17/25 08:51 O2 Del Method Room Air 04/17/25 08:51 Constitutional + obese; no acute distress ENMT Mouth: no dentition abnormality Thyromental Distance: > or= 3.5 Finger Breadths Mallampati Class: II Neck normal visual inspection and trachea midline; neck extension not limited Respiratory normal respiratory effort Auscultation: lungs clear to auscultation bilaterally Cardiovascular Rate/Rhythm: regular rate and regular rhythm Heart Sounds: no murmur Vessels: no carotid bruit Musculoskeletal Spine: normal cervical ROM and no pain with cervical ROM Extremities: + limited ROM of extremities (left foot / ankle); + extremities abnormal to inspection Neurologic moves all extremities Motor/Sensory: no sensory deficit Psychiatric Orientation: alert and oriented x 3 Testing Laboratory Results 04/17/25 06:37 04/17/25 06:37
[2025-04-17] MEDS: ceFAZolin 3000MG 3,000 MG/72.5 ML BAG IV SCH (10:06)
[2025-04-17] MEDS ORDERED: FLUMAZENIL 0.1 MG/1 ML 10 ML VIAL IV PRN (10:06)
[2025-04-17] MEDS ORDERED: ATROPINE SULFATE 0.1 MG/ML 10ML SYR IV PRN (10:06)
[2025-04-17] MEDS ORDERED: PROMETHAZINE HCL 6.25 MG in SODIUM CHLORIDE 0.9% 50 ML IV PRN (10:06)
[2025-04-17] MEDS ORDERED: NALOXONE HCL 0.4 MG/1 ML VIAL/CARP IV PRN ×2 (10:06→15:40)
[2025-04-17] MEDS ORDERED: HYDROmorphone INJ 1 MG/ML SYRINGE IV PRN (10:06)
--- NOTE | 2025-04-17 10:17 | Hospitalist Progress Note ---
Date of Service April 17, 2025 Assessment & Plan (1) Closed left ankle fracture: (2) HTN (hypertension): Plan Is a 54-year-old male with a history of anxiety, hypertension who presents to the hospital today for management of his acute distal left tibia fracture 1. Acute distal left tibia fracture: According to the patient he started experiencing some pains a couple of weeks ago. Denies any fall and does not recall spraining his ankle. Diagnosed with a nondisplaced distal tibia fracture. Per ortho,He was instructed to be nonweightbearing until follow-up. However,Patient notes that he was unable to comply with nonweightbearing while at home. MRI has been done to r/o any osseous abnormality like cancer, MRI shows only non displaced fracture Ortho is on board, plan is for surgery today PT/OT after surgery 2. Hypertension: Takes lisinopril and hydrochlorothiazide Continue blood pressure under good control Full code Disposition : will need rehab after surgery Admission and Anticipated Discharge Date Admission Date: April 15, 2025 Subjective patient seen and examined, no new complaints, going for surgery today Review of Systems Review of Systems: All systems reviewed are negative, apart from the ones contained in the history. Physical Exam Physical Exam: The patient is awake, alert and oriented 3, well developed and well nourished, normocephalic and atraumatic, lying in bed and in no acute distress. HEENT--PERRL, EOMI, mucous membranes and oropharynx mildly dry Neck--supple. No JVD. No bruits. Thyroid normal, trachea midline, no adenopathy. Heart--normal S1 and S2. No murmurs, rubs or gallops. Lungs--clear bilaterally, no respiratory distress, no accessory muscle use. Abdomen--normal bowel sounds and soft. Extremities--no cyanosis or clubbing. Left lower extremity in boot Dermatologic--normal skin turgor, normal color, no abnormal lymph nodes, no rash. Neurologic--cranial nerves II through XII grossly intact. Rheumatologic--normal range of motion. Psychiatric--normal affect. Results & Data Results & Data Vital Signs (Past 12 Hours) Vital Signs Temp Pulse Resp BP Pulse Ox O2 Del Method 04/17/25 09:14 132/88 04/17/25 08:51 98.6 F 73 20 95 Room Air 04/17/25 07:29 97.9 F 66 16 117/75 94 Room Air 04/16/25 23:19 98.1 F 65 124/74 94 Room Air PG Care Time/CCT Total # of Minutes Spent Total Time Spent with Patient: Total time spent is greater than 50% in coordination of care (as documented) at patient's floor/unit and/or counseling patient: Coding Level of Care Code 16966 SUB INP/OBS CARE 2/35MIN Diagnoses Closed left ankle fracture S82.892A HTN (hypertension) I10 Time Spent (min) 35
[2025-04-17] MEDS ORDERED: ceFAZolin 330 MG/ML 1 GM VIAL ONE (12:41)
[2025-04-17] MEDS ORDERED: LABETALOL HCL IV 5 MG/ML 20ML IV ONE (12:51)
--- NOTE | 2025-04-17 14:06 | Fluoroscopy Report ---
FL ankle LT min 3V RTN CLINICAL HISTORY: LT DISTAL TIBIA ORIF COMPARISON STUDY: 04/15/2025 FLUOROSCOPY TIME: 3 minutes 26 seconds FLUOROSCOPY IMAGES: 4 EXPOSURE DOSE: 6.5 mGy FINDINGS: Fluoroscopy was provided for plate-screw fixation of the distal tibia. IMPRESSION: Intraoperative fluoroscopy. ACT 112: Negative or not required by law. Electronically signed by: Melvin Carnes M.D. 04/17/2025 2:04 PM
[2025-04-17] MEDS ORDERED: HYDROmorphone INJ 1 MG/ML SYRINGE ONE (15:12)
[2025-04-17] MEDS ORDERED: MAGNESIUM HYDROXIDE SUSP 30 ML UDC PO PRN (15:40)
--- NOTE | 2025-04-17 15:44 | Operative Report ---
Post Operative Report Pre & Post Diagnosis Operation Date: 04/17/25 09:10 <No data on this case meets the specified criteria> Preop diagnosis: 1. Closed, traumatic, left distal tibia plafond fracture Postop diagnosis: Same I identified the patient and participated in the time-out.: Yes Procedure Operation Date: 04/17/25 09:10 <No data on this case meets the specified criteria> 1. Open reduction internal fixation left distal tibial plafond fracture 2. Physician directed fluoroscopy greater than 1 hour 3. Application left below-knee splint Surgeon Marcell Mahmood DO Machine Silver Stripper None Estimated Blood Loss 150 Findings Consistent with Post-Op Diagnosis Specimens None Complications None immediately apparent Indications This is a 54-year-old gentleman who presented to the outpatient office yesterday with a quite complex history for evaluation of his left ankle. The patient had an atraumatic onset of pain in his left ankle. This prompted an evaluation at [facility]. At that time he was diagnosed with a nondisplaced distal tibia fracture. He was instructed to be nonweightbearing until follow-up. He presented today for first follow-up and he walked into clinic on his splint. Patient notes that he was unable to comply with nonweightbearing while at home. On radiographic evaluation of the patient's ankle, he has completed his fracture proximally and he has had interval displacement of the fracture distally. Additionally, the patient's large total knee stemmed tibial component was evaluated on the tib/fib films and does appear loose. I had a very long and gracie discussion with the patient and his friend who joined him in clinic with regards to the injury that he sustained. I am quite concerned about the potential for this being a pathologic fracture as the patient did not have acute trauma that caused this fracture. He denies any personal history of cancer and denies any constitutional symptoms. On evaluation of the patient's radiographs, I do not appreciate any aggressive bony lesion, however given the history I am still quite concerned about this. In order to fully evaluate and rule out pathologic fracture, we did obtain an MRI of his tibia/fib with and without contrast. I personally discussed the results of this with the radiologist. No aggressive bony lesions were appreciated and no suspicious signs of sarcoma were noted. Radiology suspects that this represents an insufficiency type fracture. I do believe that this fracture needs to be treated surgically in order to improve the chances of fracture healing and decrease risk of future displacement. I think that there are essentially 3 management strategies for this type of fracture. Option 1 would be for open reduction internal fixation of this pilon injury via standard plate and screw construct distally. Option 2 would be for a more minimally invasive intramedullary fixation and option 3 would be for a TTC arthrodesis. The patient has already demonstrated the inability to comply with nonweightbearing while he is at home, which necessitated his presentation to the hospital, but this does also need to be factored in as it relates to surgical decision making. If the patient is unable to comply with nonweightbearing, the safest option for him would be an intramedullary fixation. Given the patient's large stemmed total knee arthroplasty, an antegrade tibial nail would not be possible thereby eliminating option 2. The only other possible intramedullary fixation strategy would be for an acute TTC arthrodesis. Given the patient's relatively nonarthritic subtalar and tibio talar joints, and the fact that this would severely limit the patient and his mobility after surgery, this is proba enrique not the best option. The best option at preserving the patient's functionality would likely be with a standard open reduction internal fixation of his distal tibia fracture. This would likely include an anterolateral and a direct medial plate in order to immobilize the fracture and also provide as much stability as possible to the fracture to encourage healing. Additionally, this preserves his tibiotalar and subtalar joints for future bailout fusion if necessary. His presentation and prior orthopaedic history also requires significant consideration with regards to surgical planning. Due to the stemmed tibial prosthesis, I do not think it is possible to overlap the constructs from his knee and ankle, so following ORIF of his distal tibia, the patient will likely have a mid diaphyseal stress riser. We would attempt to keep the distal tibial implants as far away as possible from the distal aspect of the tibial prosthesis to decrease the stress riser is much as possible, however the patient is certainly at risk of future mid diaphyseal tibial fracture. I explained this to him in plain terms. I had a very long and gracie discussion with the patient regarding the severity of his injury as well as his perioperative risks. We discussed in great detail the risks of any surgery for this patient. risks of the proposed surgery include but are not limited to loss of life/limb, DVT, incomplete relief of pain, need for additional surgery, iatrogenic injury to bone/nerve/tendon/vessel, nonunion, malunion, hardware complication, hardware failure, hardware irritation, wound healing complications, infection. Additionally, given the patient's history of postoperative infection and about his total knee requiring revision, I believe the patient's risk of infection and potentially requiring amputation in the future is significant. I expressed this to him in no uncertain terms. Additionally, I believe this patient's risk of wound healing complications is quite high. Finally, I believe the patient's risk of mid diaphyseal tibial fracture in the future is quite high as well. At this time, considering the radiology and I both reviewed the MRI and are not concerned about pathologic fracture, we will now indicate the patient for surgery. We have placed this patient on the surgical schedule for tomorrow. He should be n.p.o. after midnight. He will start DVT prophylaxis postoperatively. Additionally, given the patient's inability to comply with weightbearing restrictions, I suspect that postoperatively he will require placement in a nursing facility. He expressed understanding to all the above. Surgical plan: Open reduction internal fixation left distal tibia pilon fracture Description of Procedure After informed consent was obtained, the patient was correctly identified in the preoperative holding suite, the operative site was marked with the surgeon's initials, the date of surgery, and the word yes. The patient was then taken to the operative suite. The department of anesthesia administered general anesthesia with regional block. The patient was transferred from the [facility] to the operative table. All bony prominences were well-padded. Briefing and timeout was performed. All implants were available and sterile at the time. BRIEFING AND DEBRIEFING: Pre and post operative briefing and debriefing was performed. Introductions were made, goals of the procedure were discussed, questions and concerns were addressed. The operative site markings were identified and appropriate. A time [id number] was performed, the patient's correct identity was confirmed and the correct operative sites were identified. The patients pre-operative antibiotic dosing and administration was confirmed along with other SCIP measures. The team was polled at the completion of the surgery and all team members were in agreement that the procedure was without complication, the counts are correct, the wound class was identified and suggestions for improvement were shared. Patient was positioned supine on the operative table with all bony prominences well-padded. Mini C was placed in the right lower extremity and this was well- padded on eggcrate. Bilateral upper EXTR were placed on well-padded arm boards. The bump was placed under the left hip and a well-padded tourniquet was placed high in the left thigh. The leg was placed on a bone foam ramp. We then shaved the lower extremity, washed with chlorhexidine scrub brush and then prepped and draped in standard sterile fashion using ChloraPrep. We would raise a tourniquet to 250 mmHg. This remained elevated for 130 minutes. It was not reinflated after. We began by marking out our incisions. We plan for an anterolateral approach for an anterolateral plate and direct medial approach for the medial plate. We would start with the anterolateral approach. This was a 10 cm incision centered between the tibia and the fibula in line with the fourth ray. We dissected sharply through skin and then dissected bluntly and subcutaneous tissue. We would identify and protect superficial peroneal nerve throughout the duration of the case. The fascia overlying the anterior compartment was then opened and the anterior compartment muscles were all swept medially. We then dissected bluntly down to the anterior tibia. We would create a periosteal flap and raised this across the medial side. At this point we could easily visualize the anterior distal tibia and the fracture site. Next, using a Abbott elevator, we would raise the tissues extra periosteally off the anterolateral aspect of the tibia such that our plate would rest appropriately later. We then turned our attention medially. We plan for a direct medial incision distally. We would make this incision approximately 5 cm in length directly over the anterior colliculus. We dissected sharply through skin and then bluntly through subcutaneous tissue identifying the saphenous vein and protecting this throughout the duration of the case. We would then raise small periosteal flaps both anteriorly and posteriorly such that we could close the periosteum over the plate at the completion of the case. Then, in the proximal aspect of the incision, we would carry our periosteal dissection along the length of the tibia on the medial side using a Abbott elevator through our distal incision such that we could slide the plate up. Given the extremely low energy mechanism of injury, we felt as if stabilization on both the medial and lateral sides was necessary. We would start medially. We selected an appropriately sized variable angle medial distal tibial plate from the [employer] set. Through our previously placed incision and along the medial side of the tibia we would slide the plate proximally. We checked its position fluoroscopically and once were satisfied we would place 2 K wires in the distal aspect. We confirmed this position and then we would achieve our fracture reduction. Through both of our incisions, we were able to visualize the fracture. We would clamp from the lateral side to the medial side over the plate such that we reduced the fracture anatomically under both direct visualization and using fluoroscopy. This did remove the fracture varus. We would then begin placing cortical screws in the proximal segment. We would place a 3 x 3.5 mm cortical screws in the proximal segment that were all bicortical. We would in a percutaneous fashion using fluoroscopic guidance to ensure that we were in the appropriate hole. Our first screw was placed at the axilla of the fracture just proximal to the fracture line. This achieved excellent purchase and maintained the reduction. Once we have placed these 3 screws proximally, we turned our attention distally to the fracture site. We would attempt to lag using a 2.7 millimeter screw through the plate by over drilling the near side and under drilling the far side using a lag by technique technique. While we were placing the screw, however the head broke off within the plate. The shaft of the screw was across the fracture site and had achieved some compression, but in order to remove this screw Shanks, we would have needed to remove the entire plate. Given the potential trauma to the area, we did not think that this was necessary so we would leave the shank of the screw within the bone. We then turned our attention towards the distal locking sites and we would place distal unicortical locking screws in the distal segment such that these would avoid the intended trajectory of the screws from the anterolateral plate. At this point, we were satisfied with the reduction and stabilization of the medial side. We removed the provisional clamp that we have placed previously and once again inspected our fracture. No fracture motion was noted and the reduction was maintained, however as described previously, given the mechanism of injury here, we did feel as if stability of a second column was warranted. We would then turned our attention back towards the anterolateral incision. Through this incision we would select an appropriately sized 3.5 mm locking anterolateral plate from the [employer] set. We slid this percutaneously through our incision and checked this position fluoroscopically. Given the bicortical screws in the proximal shaft we had placed from the medial side, the plate position was dictated by those screws. Distally, this plate sat well on the anterior tibia, however more proximally, one of the screws was blocking this, so at this point we made the decision to use this plate in a bridging construct using locking screws. Distally we placed 3 screws and proximally placed 3 screws as well. Proximal screws were placed through percutaneous stab incisions using fluoroscopic guidance. We ensured to carefully dissect bluntly through the subcutaneous tissue so as to mobilize any crossing branches of the superficial peroneal nerve. Distally, our screws were placed through the locking towers and these were visualized within the incision. After we placed all internal fixation, we removed any provisional stabilization and took final fluoroscopic images. We were satisfied with the reduction and stabilization of the fracture. We then thoroughly irrigated all of the wounds and placed 1 g of vancomycin powder within the wound. We then began our layered closure. Medially, we would close the periosteum with a running 3-0 Monocryl over the distal aspect of the plate. We would then closed the skin incision using a 4-0 nylon suture in vertical Algar Donati fashion. Anterolaterally, we would close the fascia over the anterolateral compartment using interrupted 2-0 Vicryl stitches tied sequentially after all have been thrown and then we oversewed this with a running 3-0 Monocryl. Then, for the skin, we would use 4-0 nylon's in a vertical Algar Donati fashion. We placed quarter inch brown Steri-Strips between all of the sutures. Pulled the tails through. We then covered the wounds with Betadine soaked Adaptic, 4 x 4's fluffs, sterile Webril. We then placed the patient into a well-padded below-knee trilaminar AO trauma splint with the ankle held in neutral dorsiflexion while the splint cured. The patient tolerated this procedure well and was transferred to the PACU in stable condition. Prior to transportation to PACU, all counts were correct and a briefing was performed at the end of the case. Physician-directed fluoroscopy for greater than one hour was performed by myself to verify fracture alignment and the safe placement of all internal fixation. The final images saved to PACs showed views demonstrating satisfactory alignment of the fracture and stable internal fixation. Implant verification was performed by myself by reading and confirming the implant information on the packaging with the team before the sterile implants were opened. I was present for the entire procedure. Plan: Weight bearing status: Nonweightbearing left lower extremity Wound care: Keep splint clean and dry Range of motion: As tolerated of hip and knee VTE Prophylaxis: Okay to begin DVT prophylaxis from orthopedic standpoint Antibiotics: Perioperative Ancef Pain Control: Multimodal avoiding NSAIDs Vitamin D Replacement: Labs pending Discharge Plan: Likely to assisted facility due to inability to participate in nonweightbearing Follow Up: With myself in 2 weeks I attest to the content of the Intraoperative Record and any orders documented therein. Any exceptions are noted below.
--- NOTE | 2025-04-17 16:14 | Anesthesiology Progress Note ---
Date of Service April 17, 2025 Anesthesia Post Procedure Vital Signs Vital Signs: Temp Pulse Pulse Resp BP Pulse Ox O2 Del Method 04/17/25 16:05 85 18 140/95 93 Nasal Cannula 04/17/25 15:55 84 20 139/87 92 Nasal Cannula 04/17/25 15:45 84 15 142/88 H 94 Oxymask 04/17/25 15:36 36.3 C L 83 16 125/82 94 Oxymask 04/17/25 09:14 132/88 04/17/25 08:51 37.0 C 73 20 95 Room Air 04/17/25 07:29 36.6 C 66 16 117/75 94 Room Air 04/16/25 23:19 36.7 C 65 124/74 94 Room Air O2 Flow Rate 04/17/25 16:05 4 04/17/25 15:55 4 04/17/25 15:45 8 04/17/25 15:36 8 04/17/25 09:14 04/17/25 08:51 04/17/25 07:29 04/16/25 23:19 Pain Intensity Left Foot: Pain Intensity: 5 Transfer of Care Handoff Completed per policy Notes Mental Status: alert / awake / arousable and participated in evaluation Patient Amnestic to Procedure: Yes Nausea / Vomiting: adequately controlled Pain: adequately controlled Airway Patency, RR, SpO2: stable & adequate BP & HR: stable & adequate Hydration State: stable & adequate Anesthetic Complications: no major complications apparent and Pt Satisfied with anesthetic care
[2025-04-17] MEDS: VANCOMYCIN HCL 1000MG/20ML VIAL ONE (18:28)
[2025-04-17] MEDS: BUPIVACAINE/EPINEPHRINE 0.5% MPF 1:200,000 30 ML VIAL ONE (18:28)
[2025-04-17] MEDS: SODIUM CHLORIDE 0.9% 1,000 ML IV SCH (18:29)
[2025-04-17] MEDS: SENNA 8.6 MG TAB PO SCH (20:19)
[2025-04-17] MEDS: DOCUSATE SODIUM 100 MG CAP PO SCH (20:20)
[2025-04-18] MEDS: MELATONIN 3 MG TAB PO PRN (00:51)
[2025-04-18] MEDS: HYDROmorphone INJ 1 MG/ML SYRINGE IV PRN (07:39)
[2025-04-18 08:04] LABS: Hematocrit (blood only) 38.4 % (42.0-52.0); Hemoglobin 13.3 g/dl (14.0-18.0); Mean Corpuscular Hemoglobin 33.2 pg (25.0-34.0); Mean Corpuscular Volume 95.8 fL (80.0-100.0); Platelet Count 264 K/uL (130-400); RDW Standard Deviation 43.1 fL (36.4-46.3); Red Blood Count 4.01 M/uL (4.70-6.10); White Blood Count 8.44 K/ul (4.8-10.8)
[2025-04-18 08:50] LABS: Anion Gap 9.0 (3-11); Blood Urea Nitrogen 22.0 mg/dl (6-23); Calcium 9.5 mg/dl (8.6-10.3); Carbon Dioxide 28.0 mmol/L (21-32); Chloride 100.0 mmol/L (98-107); Creatinine Clr Calc Pharmacy 78.3 ml/min; Glucose 136.0 mg/dl (70-99(Fasting)); Potassium 3.4 mmol/L (3.5-5.1); Sodium 137.0 mmol/L (136-145)
[2025-04-18] MEDS: MULTIVITAMIN TAB PO SCH (09:17)
--- NOTE | 2025-04-18 10:14 | Hospitalist Progress Note ---
Date of Service April 18, 2025 Assessment & Plan (1) Closed left ankle fracture: (2) HTN (hypertension): Plan Is a 54-year-old male with a history of anxiety, hypertension who presents to the hospital today for management of his acute distal left tibia fracture 1. Acute distal left tibia fracture: According to the patient he started experiencing some pains a couple of weeks ago. Denies any fall and does not recall spraining his ankle. Diagnosed with a nondisplaced distal tibia fracture. Per ortho,He was instructed to be nonweightbearing until follow-up. However,Patient notes that he was unable to comply with nonweightbearing while at home. MRI shows only non displaced fracture, no osseos abnormalities suggestive of cancer He is now day 1 s/p ORIF Stable post surgery Awaiting PT eval 2. Hypertension: Takes lisinopril and hydrochlorothiazide Continue blood pressure under good control Full code Disposition : will need rehab vs home health Admission and Anticipated Discharge Date Admission Date: April 15, 2025 Subjective patient seen and examined, stable post surgery, pain is under good control Review of Systems Review of Systems: All systems reviewed are negative, apart from the ones contained in the history. Physical Exam Physical Exam: The patient is awake, alert and oriented 3, well developed and well nourished, normocephalic and atraumatic, lying in bed and in no acute distress. HEENT--PERRL, EOMI, mucous membranes and oropharynx mildly dry Neck--supple. No JVD. No bruits. Thyroid normal, trachea midline, no adenopathy. Heart--normal S1 and S2. No murmurs, rubs or gallops. Lungs--clear bilaterally, no respiratory distress, no accessory muscle use. Abdomen--normal bowel sounds and soft. Extremities--no cyanosis or clubbing. Left lower extremity in boot Dermatologic--normal skin turgor, normal color, no abnormal lymph nodes, no rash. Neurologic--cranial nerves II through XII grossly intact. Rheumatologic--normal range of motion. Psychiatric--normal affect. Results & Data Results & Data Vital Signs (Past 12 Hours) Vital Signs Temp Pulse Resp BP Pulse Ox O2 Del Method 04/18/25 07:19 98.6 F 81 16 133/81 94 Room Air 04/18/25 03:00 98.6 F 88 15 134/76 93 Room Air 04/17/25 22:57 99.3 F 89 18 131/77 93 Room Air PG Care Time/CCT Total # of Minutes Spent Total Time Spent with Patient: Total time spent is greater than 50% in coordination of care (as documented) at patient's floor/unit and/or counseling patient: Coding Level of Care Code 28136 SUB INP/OBS CARE 2/35MIN Diagnoses Closed left ankle fracture S82.892A HTN (hypertension) I10 Time Spent (min) 35
--- NOTE | 2025-04-18 11:22 | Orthopedic Progress Note ---
Date of Service April 18, 2025 Assessment & Plan (1) Fracture of distal end of left tibia: (2) HTN (hypertension): (3) Ambulatory dysfunction: Plan Postoperative day #1 status post open duction internal fixation left distal tibia. Overall, patient is doing well. I reiterated to him today the importance of nonweightbearing and limb elevation to decrease swelling. Patient will need to work physical therapy and Occupational Therapy determine a safe discharge plan. The patient needs to be able to maintain nonweightbearing and as such I do still believe that he will likely require placement in a nursing facility postoperatively. Okay for DVT prophylaxis from orthopedic standpoint. Admission and Anticipated Discharge Date Admission Date: April 15, 2025 Subjective Patient seen and examined at bedside. Notes his pain is well-controlled. His pain block is worn off. Review of Systems Review of Systems: All systems reviewed & are unremarkable except as noted in HPI & below Results & Data Vital Signs (Past 12 Hours) Vital Signs Temp Pulse Resp BP Pulse Ox O2 Del Method 04/18/25 07:19 37.0 C 81 16 133/81 94 Room Air 04/18/25 03:00 37.0 C 88 15 134/76 93 Room Air (1) Fracture of distal end of left tibia Encounter type: initial encounter Fracture morphology: unspecified fracture morphology Fracture type: closed Qualified Code(s): S82.302A - Unspecified fracture of lower end of left tibia, initial encounter for closed fracture
[2025-04-19 06:52] LABS: Hematocrit (blood only) 36.4 % (42.0-52.0); Hemoglobin 13.0 g/dl (14.0-18.0); Mean Corpuscular Hemoglobin 34.2 pg (25.0-34.0); Mean Corpuscular Volume 95.8 fL (80.0-100.0); Platelet Count 273 K/uL (130-400); RDW Standard Deviation 43.1 fL (36.4-46.3); Red Blood Count 3.80 M/uL (4.70-6.10); White Blood Count 7.69 K/ul (4.8-10.8)
[2025-04-19 07:15] LABS: Anion Gap 9.0 (3-11); Blood Urea Nitrogen 25.0 mg/dl (6-23); Calcium 9.6 mg/dl (8.6-10.3); Carbon Dioxide 28.0 mmol/L (21-32); Chloride 100.0 mmol/L (98-107); Creatinine Clr Calc Pharmacy 87.8 ml/min; Glucose 123.0 mg/dl (70-99(Fasting)); Potassium 3.7 mmol/L (3.5-5.1); Sodium 137.0 mmol/L (136-145)
--- NOTE | 2025-04-19 11:24 | Hospitalist Progress Note ---
Date of Service April 19, 2025 Assessment & Plan (1) Closed left ankle fracture: (2) HTN (hypertension): Plan Is a 54-year-old male with a history of anxiety, hypertension who presents to the hospital today for management of his acute distal left tibia fracture 1. Acute distal left tibia fracture: According to the patient he started experiencing some pains a couple of weeks ago. Denies any fall and does not recall spraining his ankle. Diagnosed with a nondisplaced distal tibia fracture. Per ortho,He was instructed to be nonweightbearing until follow-up. However,Patient notes that he was unable to comply with nonweightbearing while at home. MRI shows only non displaced fracture, no osseos abnormalities suggestive of cancer He is now day 2 s/p ORIF Stable post surgery Awaiting PT eval, he will need to do steps to determine if he will be appropriate for home health or rehab 2. Hypertension: Takes lisinopril and hydrochlorothiazide Continue blood pressure under good control Full code Disposition : will need rehab vs home health, awaiting eval by PT Admission and Anticipated Discharge Date Admission Date: April 15, 2025 Subjective Patient seen and examined at bedside. Notes his pain is well-controlled. His pain block is worn off. Review of Systems Review of Systems: All systems reviewed are negative, apart from the ones contained in the history. Physical Exam Physical Exam: The patient is awake, alert and oriented 3, well developed and well nourished, normocephalic and atraumatic, lying in bed and in no acute distress. HEENT--PERRL, EOMI, mucous membranes and oropharynx mildly dry Neck--supple. No JVD. No bruits. Thyroid normal, trachea midline, no adenopathy. Heart--normal S1 and S2. No murmurs, rubs or gallops. Lungs--clear bilaterally, no respiratory distress, no accessory muscle use. Abdomen--normal bowel sounds and soft. Extremities--no cyanosis or clubbing. Left lower extremity in boot Dermatologic--normal skin turgor, normal color, no abnormal lymph nodes, no rash. Neurologic--cranial nerves II through XII grossly intact. Rheumatologic--normal range of motion. Psychiatric--normal affect. Results & Data Results & Data Vital Signs (Past 12 Hours) Vital Signs Temp Pulse Pulse Resp BP Pulse Ox O2 Del Method 04/19/25 07:06 98.4 F 78 16 145/81 H 93 Room Air 04/18/25 23:52 99.3 F 81 14 98/60 L 92 Room Air PG Care Time/CCT Total # of Minutes Spent Total Time Spent with Patient: Total time spent is greater than 50% in coordination of care (as documented) at patient's floor/unit and/or counseling patient: Coding Level of Care Code 35480 SUB INP/OBS CARE 2/35MIN Diagnoses Closed left ankle fracture S82.892A HTN (hypertension) I10 Time Spent (min) 35
--- NOTE | 2025-04-19 16:42 | Orthopedic Progress Note ---
Date of Service April 19, 2025 Assessment & Plan (1) Fracture of distal end of left tibia: (2) HTN (hypertension): (3) Ambulatory dysfunction: Plan Postoperative day #2 status post open duction internal fixation left distal tibia. Overall, patient is doing well. I reiterated to him today the importance of nonweightbearing and limb elevation to decrease swelling. Patient will need to work physical therapy and Occupational Therapy determine a safe discharge plan. The patient needs to be able to maintain nonweightbearing and as such I do still believe that he will likely require placement in a nursing facility postoperatively. Okay for DVT prophylaxis from orthopedic standpoint. Admission and Anticipated Discharge Date Admission Date: April 15, 2025 Subjective Patient seen and examined at bedside. Notes his pain is well-controlled. Review of Systems Review of Systems: All systems reviewed & are unremarkable except as noted in HPI & below Physical Exam Physical Exam: splint c/d/i. foot WWP EHL,FHL intact Results & Data Vital Signs (Past 12 Hours) Vital Signs Temp Pulse Resp BP Pulse Ox O2 Del Method 04/19/25 15:24 36.9 C 89 18 108/72 94 Room Air 04/19/25 07:06 36.9 C 78 16 145/81 H 93 Room Air (1) Fracture of distal end of left tibia Encounter type: initial encounter Fracture morphology: unspecified fracture morphology Fracture type: closed Qualified Code(s): S82.302A - Unspecified fracture of lower end of left tibia, initial encounter for closed fracture
--- NOTE | 2025-04-20 06:37 | Orthopedic Progress Note ---
Date of Service April 20, 2025 Assessment & Plan (1) Fracture of distal end of left tibia: (2) HTN (hypertension): (3) Ambulatory dysfunction: Plan Postoperative day #3 status post open duction internal fixation left distal tibia. Overall, patient is doing well. I reiterated to him today the importance of nonweightbearing and limb elevation to decrease swelling. Patient will need to work physical therapy and Occupational Therapy determine a safe discharge plan. The patient needs to be able to maintain nonweightbearing and as such I do still believe that he will likely require placement in a nursing facility postoperatively. Okay for DVT prophylaxis from orthopedic standpoint. patient will follow-up with me in clinic in about 2 weeks for splint removal and wound check. Admission and Anticipated Discharge Date Admission Date: April 15, 2025 Subjective Patient seen and examined at bedside. Notes his pain is well-controlled. He has decided that he would like to go to rehab Physical Exam Physical Exam: splint c/d/i. foot WWP EHL,FHL intact Results & Data Vital Signs (Past 12 Hours) Vital Signs Temp Pulse Resp BP Pulse Ox O2 Del Method 04/20/25 02:11 82 95 Room Air 04/19/25 23:04 36.8 C 73 18 115/69 91 Room Air (1) Fracture of distal end of left tibia Encounter type: initial encounter Fracture morphology: unspecified fracture morphology Fracture type: closed Qualified Code(s): S82.302A - Unspecified fracture of lower end of left tibia, initial encounter for closed fracture
--- NOTE | 2025-04-20 10:15 | Hospitalist Progress Note ---
Date of Service April 20, 2025 Assessment & Plan (1) Closed left ankle fracture: (2) HTN (hypertension): Plan Is a 54-year-old male with a history of anxiety, hypertension who presents to the hospital today for management of his acute distal left tibia fracture 1. Acute distal left tibia fracture: According to the patient he started experiencing some pains a couple of weeks ago. Denies any fall and does not recall spraining his ankle. Diagnosed with a nondisplaced distal tibia fracture. Per ortho,He was instructed to be nonweightbearing until follow-up. However,Patient notes that he was unable to comply with nonweightbearing while at home. MRI shows only non displaced fracture, no osseos abnormalities suggestive of cancer He is now day 3 s/p ORIF Stable post surgery He has decided to go to rehab Awaiting placement 2. Hypertension: Takes lisinopril and hydrochlorothiazide Continue blood pressure under good control Full code Disposition : Awaiting rehab placement Admission and Anticipated Discharge Date Admission Date: April 15, 2025 Subjective patient seen and examined, he has decided to go to rehab, Review of Systems Review of Systems: All systems reviewed are negative, apart from the ones contained in the history. Physical Exam Physical Exam: The patient is awake, alert and oriented 3, well developed and well nourished, normocephalic and atraumatic, lying in bed and in no acute distress. HEENT--PERRL, EOMI, mucous membranes and oropharynx mildly dry Neck--supple. No JVD. No bruits. Thyroid normal, trachea midline, no ad enopathy. Heart--normal S1 and S2. No murmurs, rubs or gallops. Lungs--clear bilaterally, no respiratory distress, no accessory muscle use. Abdomen--normal bowel sounds and soft. Extremities--no cyanosis or clubbing. Left lower extremity in boot Dermatologic--normal skin turgor, normal color, no abnormal lymph nodes, no rash. Neurologic--cranial nerves II through XII grossly intact. Rheumatologic--normal range of motion. Psychiatric--normal affect. Results & Data Results & Data Vital Signs (Past 12 Hours) Vital Signs Temp Pulse Resp BP Pulse Ox O2 Del Method 04/20/25 07:46 98.6 F 74 16 106/63 95 Room Air 04/20/25 07:15 Room Air 04/20/25 02:11 82 95 Room Air 04/19/25 23:04 98.2 F 73 18 115/69 91 Room Air PG Care Time/CCT Total # of Minutes Spent Total Time Spent with Patient: Total time spent is greater than 50% in coordination of care (as documented) at patient's floor/unit and/or counseling patient: Coding Level of Care Code 51552 SUB INP/OBS CARE 2/35MIN Diagnoses Closed left ankle fracture S82.892A HTN (hypertension) I10 Time Spent (min) 35
[2025-04-21 07:41] LABS: Anion Gap 6.0 (3-11); Blood Urea Nitrogen 21.0 mg/dl (6-23); Calcium 9.8 mg/dl (8.6-10.3); Carbon Dioxide 30.0 mmol/L (21-32); Chloride 101.0 mmol/L (98-107); Creatinine Clr Calc Pharmacy 96.4 ml/min; Glucose 115.0 mg/dl (70-99(Fasting)); Potassium 4.0 mmol/L (3.5-5.1); Sodium 137.0 mmol/L (136-145)
--- NOTE | 2025-04-21 10:59 | Hospitalist Progress Note ---
Date of Service April 21, 2025 Assessment & Plan (1) Closed left ankle fracture: (2) HTN (hypertension): Plan Is a 54-year-old male with a history of anxiety, hypertension who presents to the hospital today for management of his acute distal left tibia fracture 1. Acute distal left tibia fracture: According to the patient he started experiencing some pains a couple of weeks ago. Denies any fall and does not recall spraining his ankle. Diagnosed with a nondisplaced distal tibia fracture. Per ortho,He was instructed to be nonweightbearing until follow-up. However,Patient notes that he was unable to comply with nonweightbearing while at home. MRI shows only non displaced fracture, no osseos abnormalities suggestive of cancer He is now day 4 s/p ORIF Stable post surgery He has agreed to go to rehab Awaiting placement 2. Hypertension: Takes lisinopril and hydrochlorothiazide Continue blood pressure under good control Full code Disposition : Awaiting rehab placement at [facility] Admission and Anticipated Discharge Date Admission Date: April 15, 2025 Subjective patient seen and examined, he has decided to go to rehab, initially he was reluctant Review of Systems Review of Systems: All systems reviewed are negative, apart from the ones contained in the history. Physical Exam Physical Exam: The patient is awake, alert and oriented 3, well developed and well nourished, normocephalic and atraumatic, lying in bed and in no acute distress. HEENT--PERRL, EOMI, mucous membranes and oropharynx mildly dry Neck--supple. No JVD. No bruits. Thyroid normal, trachea midline, no adenopathy. Heart--normal S1 and S2. No murmurs, rubs or gallops. Lungs--clear bilaterally, no respiratory distress, no accessory muscle use. Abdomen--normal bowel sounds and soft. Extremities--no cyanosis or clubbing. Left lower extremity in boot Dermatologic--normal skin turgor, normal color, no abnormal lymph nodes, no rash. Neurologic--cranial nerves II through XII grossly intact. Rheumatologic--normal range of motion. Psychiatric--normal affect. Results & Data Results & Data Vital Signs (Past 12 Hours) Vital Signs Temp Pulse Resp BP Pulse Ox O2 Del Method 04/21/25 07:14 98.1 F 65 16 133/81 96 Room Air 04/21/25 07:10 Room Air PG Care Time/CCT Total # of Minutes Spent Total Time Spent with Patient: Total time spent is greater than 50% in coordination of care (as documented) at patient's floor/unit and/or counseling patient: Coding Level of Care Code 28482 SUB INP/OBS CARE 2/35MIN Diagnoses Closed left ankle fracture S82.892A HTN (hypertension) I10 Time Spent (min) 35
[2025-04-22 07:37] LABS: Hematocrit (blood only) 37.9 % (42.0-52.0); Hemoglobin 13.1 g/dl (14.0-18.0); Mean Corpuscular Hemoglobin 33.4 pg (25.0-34.0); Mean Corpuscular Volume 96.7 fL (80.0-100.0); Platelet Count 313 K/uL (130-400); RDW Standard Deviation 43.7 fL (36.4-46.3); Red Blood Count 3.92 M/uL (4.70-6.10); White Blood Count 5.25 K/ul (4.8-10.8)
[2025-04-22 07:56] LABS: Anion Gap 7.0 (3-11); Blood Urea Nitrogen 21.0 mg/dl (6-23); Calcium 9.9 mg/dl (8.6-10.3); Carbon Dioxide 29.0 mmol/L (21-32); Chloride 101.0 mmol/L (98-107); Creatinine Clr Calc Pharmacy 87.8 ml/min; Glucose 116.0 mg/dl (70-99(Fasting)); Potassium 4.0 mmol/L (3.5-5.1); Sodium 137.0 mmol/L (136-145)
--- NOTE | 2025-04-22 12:51 | Discharge Summary ---
Discharge Summary Date of Service April 22, 2025 Principal Dx & Hospital Course #1 = Principal Diagnosis (1) Closed left ankle fracture: (2) HTN (hypertension): Plan Is a 54-year-old male with a history of anxiety, hypertension who presents to the hospital today for management of his acute distal left tibia fracture #Acute distal left tibia fracture: According to the patient he started experiencing some pains a couple of weeks ago. Denies any fall and does not recall spraining his ankle. Diagnosed with a nondisplaced distal tibia fracture. Per ortho,He was instructed to be nonweightbearing until follow-up. However,Patient notes that he was unable to comply with nonweightbearing while at home. MRI shows only non displaced fracture, no osseos abnormalities suggestive of cancer s/p ORIF on 04/17/25 Stable post surgery Follow up with Dr. Mahmood in 2 weeks DVT ppx with Lovenox 40 SC daily #Hypertension: Takes lisinopril and hydrochlorothiazide Continue blood pressure under good control Full code Admission HPI Per Admitting Provider This a 54-year-old male with a history of anxiety, hypertension, who presents to the hospital on account of left foot pain. According to the patient he noticed that he started having some ankle pain sometime last week which had progressively gotten worse. He initially went to [facility] last week and and they diagnosed him with fracture of the ankle and gave him a boot to wear. However he has some difficulty getting around with the boot and now went to see Dr. Mahmood who said that he is going to need surgery and then subsequent to rehab. Here in the emergency department, vital signs are stable blood pressure 134/89, pulse 82 respiratory rate 20 temperature 98.2. Foot and ankle x-ray today showed evidence of acute fracture of the distal tibia. He will be admitted to the hospital for further management Discharge Exam Gen: no acute distress, lying in bed comfortable HEENT: NC/AT, MMM Lungs: nonlabored breathing, CTAB CVS: s1s2nl, RRR Abd: nl bowel sounds, soft, NT / ND : no alt[place]irano Ext: no edema, left ankle dressing intact Neuro: AAOx3 Psych: calm cooperative Discharge Plan Discharge Items Patient Disposition: Transfer Acute Care Hospital Reason For Visit: ANKLE FRACTURE Discharge Diagnosis: Ankle fracture Condition on Discharge: Good Activity: Resume your previous activity Non-emergency contact: Primary Care Provider Call non-emergency contact if: you have any medication questions, your pain is not controlled, your pain is worsening and your pain is unusual for you Follow-up/Referrals: Sharmila Mora PA-C [Primary Care Provider] - Marcell Mahmood DO [Surgeon] - (In TWO weeks) Diet: Regular Addtl Attending Provider Instructions: You were admitted due to ankle fracture. You were evaluated by orthopedic surgery and you had surgical intervention of the ankle. You were also evaluated by physical and occupational therapy and recommended rehab. Please note that you were placed on additional blood thinners to prevent clot formation in the affected leg. Please follow up with Dr. Mahmood as outpatient in two weeks. Pending Studies at Discharge: No Stand-Alone Forms: My [facility] Skilled Items Patient informed of condition?: Yes DNR: No Discharge Level of Care: Acute rehab Communicable Disease: No Discharge Prognosis: Stable Lines: None Urinary Catheter: No Medications and DC Order Prescriptions: New sennosides [Senna Lax] 8.6 mg Tablet 17.2 mg PO HS Qty: 60 0RF oxycodone 5 mg Tablet 5 - 10 mg PO Q4H PRN (Reason: pain) 30 Days Qty: 20 0RF enoxaparin [Lovenox] 40 mg/0.4 mL syringe 40 mg subcut DAILY Qty: 4 0RF Continued atorvastatin 80 mg tablet 80 mg PO DAILY citalopram 10 mg tablet 10 mg PO DAILY aspirin 81 mg tablet,delayed release (DR/EC) 81 mg PO DAILY buspirone 10 mg tablet 10 mg PO TID lisinopril-hydrochlorothiazide 20-25 mg tablet 1 tab PO DAILY Emergen-C 1,000 mg Powder Effervescent In Packet 1 ea PO DAILY Held diclofenac sodium 75 mg tablet,delayed release (DR/EC) 75 mg PO BID PRN (Reason: Pain) Hold Instructions: Resume on 10/22/25. After cleared by PCP Discontinued lisinopril 20 mg tablet 20 mg PO DAILY Discharge Orders: Discharge Order (Routine); Ordered 04/22/25 Ordered By: Nickie Larson Admission Data Admit Date/Time: 04/15/25 14:53 Attending Provider: Nickie Larson Admit Provider: Angel Garcia Primary Care Provider: Sharmila Mora Other Providers: [facility]; Angel Garcia; Marcell Mahmood; Smiley Smiley Other Interventions: Discharge Summary Assessment (RN) Last Done: 04/22/25 12:04 Hospital Stay Data Consultations 04/15/25 14:51 ED Decision to Admit Stat 04/15/25 16:30 Consult Orthopedic Surgery Routine Procedures Performed Operation Date: 04/17/25 09:10 Actual Procedures p Left Open Reduction Internal Fixation Left Pilon Fracture, Application Left Below Knee Splint, Physician Directed Flouroscopy Greater Than 1 Hour(Left) - Marcell Mahmood DO Diagnostic Imagining Performed 04/15/25 16:34 MRI Lower Leg [MR lower leg LT wo/w con] Routine 04/17/25 09:10 FL ankle LT min 3V RTN Routine 04/17/25 09:45 US - OR guided needle placemen Stat Pending Results Patient Have Any Pending Studies at Discharge: No Discharge Instructions Given to Patient (Per Discharging Provider) You were admitted due to ankle fracture. You were evaluated by orthopedic surgery and you had surgical intervention of the ankle. You were also evaluated by physical and occupational therapy and recommended rehab. Please note that you were placed on additional blood thinners to prevent clot formation in the affected leg. Please follow up with Dr. Mahmood as outpatient in two weeks. Total Time Total Time Spent Total Time Spent (In Minutes): 45 Coding Level of Care Code 89179 INP/OBS DISCH >30 MIN Diagnoses Closed left ankle fracture S82.892A HTN (hypertension) I10
== END 2025-04-22 15:40 | DRG 494 ==
LOC: ED 13:24 → 3W 14:53 → SUATTDRO 14:53 → 3W 15:59